=== PATIENT | female | born 1985 | race African-American/Black ===

== ENCOUNTER 2017-10-08 19:45 | Emergency (ER) | payer SELFPAY ==
[~2017-10-08] VITALS: Ht 154.9 cm; Wt 54.4 kg
--- NOTE | 2017-10-08 19:45 | NUR ---
[facility] 62/ [employer] [facility] [employer] FOR BIZARRE BEHAVIOR. ADMITS TO SMOKING METH DAILY. "I FEEL FINE JUST LIKE THE HIGH OF METH. SOMETIMES I TRIP OUT IS ALL" PT IS HYPERTENSIVE AND TACHYCARDIC RELATED TO DRUG USE. WILL CONTINUE TO MONITOR FOR NAY CHNAGES DURING THE SHIFT.
--- NOTE | 2017-10-08 19:46 | NUR ---
SUKHI RAMOS AT [facility] Addendum: 10/08/17 at 2021 by RASHIDA SALMA MORROW
[2017-10-08] MEDS ORDERED: LORAZEPAM 1 MG TABLET ONE (20:17)
[2017-10-08 20:21] VITALS: BP 145/85
[2017-10-08] MEDS ORDERED: LORAZEPAM 1 MG TABLET PO ONE (20:30)
== END 2017-10-08 20:33 | disposition home or self-care (01) ==
LOC: ER 19:48
DX: F15.20 Other stimulant dependence, uncomplicated (principal); N76.0 Acute vaginitis; F31.9 Bipolar disorder, unspecified; F43.10 Post-traumatic stress disorder, unspecified; Z60.2 Problems related to living alone
CPT/HCPCS: 99283; A4606; Z7610